=== PATIENT | female | born 1980 | race Caucasian/White ===

== ENCOUNTER 2020-08-31 20:47 | Inpatient (IN) | payer MEDICAID, SELFPAY ==
[2020-08-31 20:47] VITALS: BP 157/95; PULSE 84; RESP 18; TEMP 36.1; O2SAT 100; BMI 27.3
--- NOTE | 2020-08-31 20:59 | ED.VIS.GEN ---
History of Present Illness Chief Complaint: Substance Abuse Informant: Patient Narrative: Patient presents asking for detox from heroin and fentanyl. She has been using since May. She has been using daily and states she typically uses 1/2 to 1 g. Last use was at 4 PM today. Patient states that she did go to a clinic and try Suboxone in the past but this threw her into very severe withdrawal symptoms. She has never been in a inpatient detox unit. - Past Medical History (1) Depression Status: Chronic (2) Anxiety Status: Chronic (3) High cholesterol Status: Chronic (4) GERD (gastroesophageal reflux disease) Status: Chronic Past Medical History - Allergies and Home Meds Allergies/Adverse Reactions: Allergies Penicillins Allergy (Verified 08/31/20 21:25) Hives Drugs: Heroin, - - Fentanyl Review of Systems General: Denies: Chills, Fever Eyes: Denies: Visual changes - bilaterally ENT: Denies: Bilateral ear pain Cardiovascular: Denies: Chest pain Respiratory: Denies: Dyspnea, Cough Gastrointestinal: Reports: Nausea Musculoskeletal: Reports: Myalgias, Back pain Neurological: Denies: Headache Hematologic: Denies: Easy bruising, Easy bleeding Allergy: Denies: Uticaria Physical Exam Vital Signs/Narrative: Vital Signs Temp Pulse Resp BP Pulse Ox 08/31/20 20:47 97 F L 84 18 157/95 H 100 Inital Vital Signs reviewed: Yes General: Well nourished, Well developed Head: Normocephalic ENT: Moist mucous membranes Neck: Supple Cardiovascular: Regular rate, Regular rhythm Respiratory: No distress, CTA bilaterally Abdomen: Soft, Nontender Extremities: Nontender Skin: Normal color, - - Scarring noted to the arms but no acute abscesses. Neurological: Alert, Oriented x3 Psychological: Normal affect Diagnostic/Tx/Re-eval Laboratory Results 08/31/20 08/31/20 08/31/20 21:11 21:11 21:11 WBC 7.2 RBC 4.39 Hgb 12.3 Hct 37.7 MCV 85.9 MCH 28.0 MCHC 32.6 RDW Std Deviation 44.8 H RDW Coeff of Haroldo 14.3 Plt Count 248 MPV 11.7 Immature Gran % (Auto) 0.300 Neut % (Auto) 55.1 Lymph % (Auto) 34.3 [place] % (Auto) 7.1 Eos % (Auto) 2.5 Baso % (Auto) 0.7 Absolute Neuts (auto) 4.0 Absolute Lymphs (auto) 2.46 Nucleated RBC % 0 Sodium 141 Potassium 3.6 Chloride 107 Carbon Dioxide 29.0 Anion Gap 5 BUN 10 Creatinine 0.56 Estim Creat Clear Calc 121.37 Est GFR (MDRD) Af Amer 156 Est GFR (MDRD) Non-Af 129 BUN/Creatinine Ratio 18.0 Glucose 102 Calcium 9.2 Total Bilirubin 1.20 H AST 198 H ALT 208 H Alkaline Phosphatase 117 Total Protein 7.2 Albumin 3.7 Globulin 3.5 Albumin/Globulin Ratio 1.1 Urine Opiates Screen Urine Methadone Screen Ur Barbiturates Screen Ur Phencyclidine Scrn Ur Amphetamines Screen U Methamphetamin-MDMA U Benzodiazepines Scrn Urine Cocaine Screen U Cannabinoids Screen Ur Drug Screen Comment Ethyl Alcohol < 3.0 08/31/20 21:14 WBC RBC Hgb Hct MCV MCH MCHC RDW Std Deviation RDW Coeff of Haroldo Plt Count MPV Immature Gran % (Auto) Neut % (Auto) Lymph % (Auto) [place] % (Auto) Eos % (Auto) Baso % (Auto) Absolute Neuts (auto) Absolute Lymphs (auto) Nucleated RBC % Sodium Potassium Chloride Carbon Dioxide Anion Gap BUN Creatinine Estim Creat Clear Calc Est GFR (MDRD) Af Amer Est GFR (MDRD) Non-Af BUN/Creatinine Ratio Glucose Calcium Total Bilirubin AST ALT Alkaline Phosphatase Total Protein Albumin Globulin Albumin/Globulin Ratio Urine Opiates Screen NEGATIVE Urine Methadone Screen NEGATIVE Ur Barbiturates Screen NEGATIVE Ur Phencyclidine Scrn NEGATIVE Ur Amphetamines Screen POSITIVE H U Methamphetamin-MDMA NEGATIVE U Benzodiazepines Scrn NEGATIVE Urine Cocaine Screen NEGATIVE U Cannabinoids Screen NEGATIVE Ur Drug Screen Comment Ethyl Alcohol - Medical Decision Making Patient was given Zofran and Ativan. On repeat evaluation she is resting comfortably. She states she still has some pain in her back but her anxiety and nausea are improved. She will be given a dose of Toradol. Patient's ALT and AST are elevated. We will send an acute hepatitis panel. Patient states that she is sure not to share needles and has never been diagnosed with hepatitis in the past. I will speak with hospitalist regarding admission. ED Disposition - Plan for ED Patient: Disposition: Acute Care [facility] Diagnosis: Desire for detoxification, Transaminitis
[2020-08-31 21:23] LABS: Absolute Lymphocyte Count 2.46 X10^3/uL (0.83-4.51); Basophil# 0.05 X10^3/uL; Basophil% 0.7 % (0-1); Eosinophil# 0.18 X10^3/uL; Eosinophils% 2.5 % (0-5); Hematocrit 37.7 % (37-47); Hemoglobin 12.3 g/dL (12.0-15.0); Lymphocyte # 2.46 X10^3/ul (4.0); Lymphocyte % 34.3 % (19-41); Mean Corp Hgb Conc 32.6 g/dL (32-36); Mean Corpuscular Volume 85.9 fL (81-99); Mean Platelet Vol. 11.7 fl (6.2-12.0); Monocyte# 0.51 X10^3/uL; Monocyte% 7.1 % (0-10); NRBC Flagged by Analyzer 0 % (0-5); Neutrophil # 3.95 X10^3/uL (2.7-7.7); Neutrophil % 55.1 % (47-70); Platelet Count 248 K/mm3 (150-450); RBC Distribution Width CV 14.3 % (11.6-14.6); RBC Distribution Width SD 44.8 fl (35.1-43.9); Red Blood Count 4.39 M/mm3 (4.2-5.4); White Blood Count 7.2 K/mm3 (4.4-11.0)
[2020-08-31] MEDS: Ondansetron 4 MG/2 ML Vial IV (21:26)
[2020-08-31] MEDS: LORazepam 2 MG/ML Syringe 1 MG IV (21:26)
[2020-08-31 21:34] LABS: Alcohol, Blood (Medical)-Serum < 3.0 mg/dL
[2020-08-31 21:36] LABS: Amphetamine Urine VISTA POSITIVE (<1000 ng/mL); Barbiturate Urine VISTA NEGATIVE (< 200 ng/mL); Benzodiazepine Urine VISTA NEGATIVE (< 200 ng/mL); Cocaine Urine VISTA NEGATIVE (< 300 ng/mL); Ecstacy Urine VISTA NEGATIVE (< 500 ng/mL); Methadone Urine VISTA NEGATIVE (< 300 ng/mL); PCP Urine VISTA NEGATIVE (< 25 ng/mL); THC Urine VISTA NEGATIVE (< 50 ng/mL); Vista UDS pH Range 6
[2020-08-31 21:39] LABS: ALB/GLOB Ratio 1.1 RATIO (0.9-2.4); AST(SGOT) 198 U/L (15-37); Alanine Aminotransfer ALT/SGPT 208 U/L (13-56); Albumin, Serum 3.7 g/dL (3.2-5.0); Alkaline Phosphatase 117 U/L (45-117); Anion Gap 5 (5-15); BUN 10 mg/dL (7-18); Calcium,Total 9.2 mg/dL (8.5-10.1); Chloride 107 mmol/L (98-107); Creatinine, Serum 0.56 mg/dL (0.55-1.02); EST Glomerular Filtration Rate 129 mL/min (>60); Est Glom Filt Rate - Afr Amer 156 mL/min (>60); Estimated Creatinine Clearance 121.37 ml/min; Globulin 3.5 g/dL (2.2-4.2); Glucose 102 mg/dL (74-106); Potassium 3.6 mmol/L (3.5-5.1); Protein, Total 7.2 g/dL (6.4-8.2); Sodium Level 141 mmol/L (136-145)
[2020-08-31 22:47] VITALS: BP 144/89; PULSE 61; RESP 18; O2SAT 100
[2020-08-31] MEDS: Ketorolac 30 MG/ML Syringe IV (22:57)
[2020-08-31 22:59] VITALS: BP 144/89; PULSE 61; RESP 18; TEMP 36.9; O2SAT 100
--- NOTE | 2020-08-31 23:08 | PCM.HP.STD ---
Problem List (1) Opiate withdrawal Status: Acute (2) Desire for detoxification Status: Acute (3) Transaminitis Status: Acute (4) Anxiety Status: Acute (5) Depression Status: Chronic (6) GERD (gastroesophageal reflux disease) Status: Chronic (7) High cholesterol Status: Chronic History of Present Illness Date of Admission: 08/31/20 Chief Complaint: Withdrawal symptoms The patient is a 40 year old F with a past medical history of hyperlipidemia; insomnia; anxiety and depression who presents to the emergency department with opioid withdrawal symptoms. Her symptoms started few hours before presentation. Her drug of choice is heroin which she shoots in her arms. She admitted that the heroin might be mixed with fentanyl. The last time of use was in the morning of her presentation. She reported her withdrawal symptoms as nausea; back pain; twitches; anxiety; restless legs. Also she has been shooting crystal methamphetamine. She started using drugs in May of this year (2019). Past Medical History Past Medical History (Chronic Problems): Chronic Problems Depression (Chronic) High cholesterol (Chronic) GERD (gastroesophageal reflux disease) (Chronic) Allergies Penicillins Allergy (Verified 08/31/20 21:25) Hives Home Medications: Ambulatory Orders Medication Instructions Recorded Atorvastatin Calcium [Lipitor] 20 mg PO QHS 08/31/20 Doxepin HCl 10 mg PO QHS 08/31/20 Escitalopram Oxalate 20 mg PO DAILY 08/31/20 Omeprazole 20 mg PO DAILY 08/31/20 Surgical History: hysterectomy, - Smoking Status: Current every day smoker Tobacco Use: Cigarettes Drugs: Heroin, - - Fentanyl - *Family History Maternal History Items: Cancer, - - Thyroid disease Paternal History Items: - - Patient does not know paternal medical history Review of Systems Constitutional: Denies: Chills, Fever, Weight Change HEENT: Denies: Head Aches, Sinus Congestion, Sinus Drainage Cardiovascular: Denies: Chest Pain, Palpitations Respiratory: Denies: Cough, Shortness of breath at rest, Sputum production Gastrointestinal: Reports: Nausea. Denies: Abdominal Pain, Vomiting Genitourinary: Denies: Dysuria Musculoskeletal: Reports: Back Pain. Denies: Joint Pain, Joint Tenderness Skin: Denies: Rash, Wounds Neurological: Denies: Numbness, Tingling, Focal weakness Psychiatric: Reports: Anxiety. Denies: Depression, Homicidal Ideations, Suicidal Ideations Hematologic/ Lymphatic: Denies: Easy Bruising, Easy Bleeding VTE Information - Inpt Only VTE Present on Admission: No VTE Mechan Device Prophylaxis: None VTE Pharm Prophylaxis ordered?: No Reason prophylaxis not ordered:: Treatment Not Indicated - Low risk; encourage ambulate. Patient Problems: Active and Suspected Problems Anxiety (Acute) Desire for detoxification (Acute) Transaminitis (Acute) Opiate withdrawal (Acute) - Physical Exam Vitals/I&O's: Vital Signs Temp Pulse Resp BP Pulse Ox 98.5 F 61 18 144/89 H 100 08/31/20 22:59 08/31/20 22:59 08/31/20 22:59 08/31/20 22:59 08/31/20 22:59 Oxygen Delivery Method Room Air Weight: 74.4 kg Body Mass Index (BMI) 27.3 General: Alert, Oriented x3, Cooperative HEENT: Atraumatic, PERRLA, EOMI, Normocephalic Neck: Supple, No JVD, Negative Carotid Bruits Lungs: Clear to auscultation, Normal air movement Cardiovascular: Regular rate, Normal S1, Normal S2, No murmurs Abdomen: Bowel Sounds Present, Soft, Non Tender Extremities: No edema, Capillary Refill Less than 3 Seconds Skin: No rashes, No breakdown Musculoskeletal: No Tenderness to Palpation of Joints or Extremities Neurological: Cranial nerves II-XII grossly intact Psych/Mental Status: Anxious Laboratory Results 08/31/20 21:11: WBC 7.2, RBC 4.39, Hgb 12.3, Hct 37.7, MCV 85.9, MCH 28.0, MCHC 32.6, RDW Std Deviation 44.8 H, RDW Coeff of Haroldo 14.3, Plt Count 248, MPV 11.7, Immature Gran % (Auto) 0.300, Neut % (Auto) 55.1, Lymph % (Auto) 34.3, [place] % (Auto) 7.1, Eos % (Auto) 2.5, Baso % (Auto) 0.7, Absolute Neuts (auto) 4.0, Absolute Lymphs (auto) 2.46, Nucleated RBC % 0 08/31/20 21:11: Sodium 141, Potassium 3.6, Chloride 107, Carbon Dioxide 29.0, Anion Gap 5, BUN 10, Creatinine 0.56, Estim Creat Clear Calc 121.37, Est GFR (MDRD) Af Amer 156, Est GFR (MDRD) Non-Af 129, BUN/Creatinine Ratio 18.0, Glucose 102, Calcium 9.2, Total Bilirubin 1.20 H, AST 198 H, ALT 208 H, Alkaline Phosphatase 117, Total Protein 7.2, Albumin 3.7, Globulin 3.5, Albumin/Globulin Ratio 1.1 08/31/20 21:11: Ethyl Alcohol < 3.0 08/31/20 21:14: Urine Opiates Screen NEGATIVE, Urine Methadone Screen NEGATIVE, Ur Barbiturates Screen NEGATIVE, Ur Phencyclidine Scrn NEGATIVE, Ur Amphetamines Screen POSITIVE H, U Methamphetamin-MDMA NEGATIVE, U Benzodiazepines Scrn NEGATIVE, Urine Cocaine Screen NEGATIVE, U Cannabinoids Screen NEGATIVE, Ur Drug Screen Comment 08/31/20 22:59: Hepatitis A IgM Ab Pending, Hep Bs Antigen Pending, Hep B Core IgM Ab Pending, Hepatitis C Ab (EIA) Pending Assessment/Plan All Active Problems Anxiety (Acute) Desire for detoxification (Acute) Transaminitis (Acute) Opiate withdrawal (Acute) Opiate withdrawal with desire for detoxification Emergency department labs were reviewed. Urine toxicology was positive for amphetamines. Start patient on opiate withdrawal protocol with Subutex and other adjunctive medications. Counselled. Elevated liver enzymes May department labs showed elevated liver biochemistry and bilirubin. She denies sharing needles. Differential diagnosis include fatty liver; and hepatitis C. Acute hepatitis panel was ordered at emergency department. Trend CMP. We will get acute hepatitis panel. Keep n.p.o. and get ultrasound of liver in a.m. Albumin is normal. Check PT/INR. Acute on chronic anxiety Doxepin and Escitalopram continued Detoxification as above. Hyperlipidemia Lipitor continued Hiatal hernia with GERD Omeprazole continued Insomnia Trazodone as needed. DVT prophylaxis Low risk; encourage to ambulate. Inpatient E&M: 67280 Init Hosp L3
--- NOTE | 2020-08-31 23:47 | PCS.PANDOC ---
PANDEMIC DOCUMENTATION INITIATED: Date: 08/31/2020 Time: 3543
[2020-09-01 00:04] VITALS: BMI 27.4
[2020-09-01 00:09] VITALS: BMI 27.5
[2020-09-01 00:30] VITALS: BP 123/67; PULSE 73; RESP 16; TEMP 36.8; O2SAT 100
[2020-09-01] MEDS: Doxepin Hydrochloride 10 MG Capsule PO ×2 (00:42→22:04)
[2020-09-01] MEDS: traZODone 100 MG Tablet PO ×2 (00:42→22:03)
[2020-09-01] MEDS: hydrOXYzine PAM 25 MG Capsule 50 MG PO ×3 (00:42→22:04)
--- NOTE | 2020-09-01 05:55 | US_ITS ---
STUDY: ABDOMINAL ULTRASOUND - RIGHT UPPER QUADRANT REASON FOR VISIT: Female, 40 years old ELEVATED LIVER ENZYMES TECHNIQUE: Ultrasound evaluation of the right upper quadrant was performed with real-time and static cao-scale imaging. TECHNICAL QUALITY: Adequate. COMPARISON: None. FINDINGS: Liver: The liver measures 17.0 cm. There is increased echogenicity consistent with fatty infiltration. The bile ducts are within normal limits. There is hepatic color flow. The direction of portal flow is hepatopetal. There is no demonstrated mass lesion. Gallbladder: Normal distended gallbladder. The gallbladder wall measures 2 mm. There is a negative sonographic Martin''s sign. There is no pericholecystic fluid. There are no gallstones. Common Bile Duct (C.B.D.): The common bile duct measures 4 mm. Pancreas: Normal size of the head, body and tail of the pancreas. There is normal echogenicity of the pancreas. There is no demonstrated pancreatic mass or cyst. Right Kidney: Normal size of the right kidney. The right kidney measures 11.4 cm. Normal renal cortex. The right cortex measures 1.4 cm. There is no demonstrated renal mass or cyst. There is no right hydronephrosis. US/Liver IMPRESSION: Fatty infiltration of the liver. Electronically Signed: Johann Barajas MD at 9:22 EST Tel , Service support ,
[2020-09-01 06:21] VITALS: BP 104/63; PULSE 66; RESP 14; TEMP 36.7; O2SAT 95
[2020-09-01] MEDS: Buprenorphine HCl 2 MG TAB.SUBL SL ×3 (06:29→22:03)
[2020-09-01 07:14] VITALS: O2SAT 95
--- NOTE | 2020-09-01 08:25 | PCM.PROGNOTE ---
Patient Problems: Active and Suspected Problems Anxiety (Acute) Desire for detoxification (Acute) Transaminitis (Acute) Opiate withdrawal (Acute) Subjective: Chief complaint: Follow-up after admission for acute opioid withdrawal. Patient seen and examined. No acute events overnight. She complained of back ache, body aches and fatigue. She slept okay last night. Her vital signs are stable. - Physical Exam Vitals/I&O's: Vital Signs Temp Pulse Resp BP Pulse Ox 98.0 F 66 14 104/63 95 09/01/20 06:21 09/01/20 06:21 09/01/20 06:21 09/01/20 06:21 09/01/20 07:14 Oxygen Delivery Method Room Air Weight: 165 lb Body Mass Index (BMI) 27.4 Intake and Output for Last 24 Hours 08/30/20 08/31/20 09/01/20 23:59 23:59 23:59 Intake Total 0 / 0 Balance 0 / 0 General: Alert, Oriented x3, Cooperative, No apparent distress HEENT: Atraumatic, PERRLA, EOMI, Normocephalic Oral: Moist Mucosa, No Gingival or Mucosal Lesions/ Ulcerations Neck: Supple, No JVD, Negative Carotid Bruits, Trachea Midline, Thyroid Normal Size and Texture Lungs: Clear to auscultation, Normal air movement, No rhonchi, No wheeze, No rales Cardiovascular: Regular rate, Regular Rhythm, Normal S1, Normal S2, No murmurs, PMI Normal Abdomen: Bowel Sounds Present, Soft, Non Tender, Non-Distended, No Hepato-splenomegaly Extremities: No clubbing, No cyanosis, No edema Skin: No rashes, No breakdown Lymphatic: No Cervical, Supraclavicular, or Inguinal Adenopathy Neurological: Cranial nerves II-XII grossly intact, Motor Exam 5/5 strength throughout Psych/Mental Status: Normal Affect, Appropriate, Alert and oriented to time, place, person, mood and affect Laboratory Results 08/31/20 21:11: WBC 7.2, RBC 4.39, Hgb 12.3, Hct 37.7, MCV 85.9, MCH 28.0, MCHC 32.6, RDW Std Deviation 44.8 H, RDW Coeff of Haroldo 14.3, Plt Count 248, MPV 11.7, Immature Gran % (Auto) 0.300, Neut % (Auto) 55.1, Lymph % (Auto) 34.3, [place] % (Auto) 7.1, Eos % (Auto) 2.5, Baso % (Auto) 0.7, Absolute Neuts (auto) 4.0, Absolute Lymphs (auto) 2.46, Nucleated RBC % 0 08/31/20 21:11: Sodium 141, Potassium 3.6, Chloride 107, Carbon Dioxide 29.0, Anion Gap 5, BUN 10, Creatinine 0.56, Estim Creat Clear Calc 121.37, Est GFR (MDRD) Af Amer 156, Est GFR (MDRD) Non-Af 129, BUN/Creatinine Ratio 18.0, Glucose 102, Calcium 9.2, Total Bilirubin 1.20 H, AST 198 H, ALT 208 H, Alkaline Phosphatase 117, Total Protein 7.2, Albumin 3.7, Globulin 3.5, Albumin/Globulin Ratio 1.1 08/31/20 21:11: Ethyl Alcohol < 3.0 08/31/20 21:14: Urine Opiates Screen NEGATIVE, Urine Methadone Screen NEGATIVE, Ur Barbiturates Screen NEGATIVE, Ur Phencyclidine Scrn NEGATIVE, Ur Amphetamines Screen POSITIVE H, U Methamphetamin-MDMA NEGATIVE, U Benzodiazepines Scrn NEGATIVE, Urine Cocaine Screen NEGATIVE, U Cannabinoids Screen NEGATIVE, Ur Drug Screen Comment 08/31/20 22:59: Hepatitis A IgM Ab Pending, Hep Bs Antigen Pending, Hep B Core IgM Ab Pending, Hepatitis C Ab (EIA) Pending 09/01/20 07:45: Sodium Pending, Potassium Pending, Chloride Pending, Carbon Dioxide Pending, Anion Gap Pending, BUN Pending, Creatinine Pending, Est GFR (MDRD) Af Amer Pending, Est GFR (MDRD) Non-Af Pending, BUN/Creatinine Ratio Pending, Glucose Pending, Calcium Pending, Total Bilirubin Pending, AST Pending, ALT Pending, Alkaline Phosphatase Pending, Total Protein Pending, Albumin Pending 09/01/20 07:45: PT Pending, INR Pending Current Medications Atorvastatin Calcium (Atorvastatin Calcium 20 Mg Tablet) 20 mg PO QHS DAVID Buprenorphine HCl (Buprenorphine Hcl 2 Mg Tab.Subl) 4 mg SL Q8H DAVID; Taper Stop: 09/04/20 06:29 Last Admin: 09/01/20 06:29 Dose: 4 mg Documented by: Clonidine (Clonidine Hcl 0.1 Mg Tablet) 0.1 mg PO Q8H PRN PRN PRN Reason: RESTLESSNESS Dicyclomine HCl (Dicyclomine 10 Mg Capsule) 20 mg PO Q6H PRN PRN PRN Reason: Abdominal Discomfort Doxepin HCl (Doxepin Hydrochloride 10 Mg Capsule) 10 mg PO QHS [facility] Last Admin: 09/01/20 00:42 Dose: 10 mg Documented by: Escitalopram Oxalate (Escitalopram Oxalate 20 Mg Tablet) 20 mg PO DAILY [facility] Gabapentin (Gabapentin 300 Mg Capsule) 300 mg PO Q8H PRN PRN PRN Reason: moderate to severe anxiety Hydroxyzine Pamoate (Hydroxyzine [place] 25 Mg Capsule) 50 mg PO Q6H PRN PRN PRN Reason: mild anxiety Last Admin: 09/01/20 00:42 Dose: 50 mg Documented by: Loperamide HCl (Loperamide 2 Mg Capsule) 2 mg PO Q4H PRN PRN PRN Reason: LOOSE STOOLS Melatonin (Melatonin 3 Mg Tablet) 3 mg PO QHS PRN PRN PRN Reason: INSOMNIA Methocarbamol (Methocarbamol 750 Mg Tablet) 1,500 mg PO Q6H PRN PRN PRN Reason: MUSCLE SPASM Nicotine (Nicotine 21 Mg Patch) 21 mg TD DAILY [facility] Last Admin: 09/01/20 01:19 Dose: 21 mg Documented by: Nutritional Formula (Lactose Free) (Ensure Enlive 120 Ml Liquid) 120 ml PO 4X/DAY [facility] Ondansetron HCl (Ondansetron 8 Mg Tablet) 8 mg PO Q8H PRN PRN PRN Reason: NAUSEA Pantoprazole Sodium (Pantoprazole Sodium 20 Mg Tablet) 20 mg PO DAILY [facility] Sodium Chloride (0.9% Saline Lock 10 Ml Syringe) 10 - 40 ml IV UD PRN PRN Reason: SALINE FLUSH Trazodone HCl (Trazodone 100 Mg Tablet) 100 mg PO QHS PRN PRN PRN Reason: INSOMNIA Last Admin: 09/01/20 00:42 Dose: 100 mg Documented by: Medical Necessity - Tobacco Use Smoking Status: Current every day smoker Tobacco Use: Cigarettes Assessment/Plan All Active Problems Anxiety (Acute) Desire for detoxification (Acute) Transaminitis (Acute) Opiate withdrawal (Acute) This is a 40 years old female patient admitted for acute opioid withdrawal for medical stabilization. #2 acute opiate withdrawal: Patient has been using IV fentanyl and heroin. She is on tapering Subutex, as needed Catapres, Bentyl, Neurontin, Vistaril, Imodium, methocarbamol, Zofran and trazodone. Routine blood work was unremarkable. Urine drug screen was positive for amphetamines. Blood alcohol level was negative. She still having withdrawal symptoms mainly body aches, pains and fatigue. She is appropriate for inpatient treatment. Plan to continue same treatment, consult 180 program. #2 elevated LFT: In setting of IV drug user. Bilirubin slight elevated, liver transaminases are elevated, alk phos is normal. She denied any right upper quadrant abdominal pain. Hepatitis serology is pending. #3 hyperlipidemia: Continue statins. #4 depression: Stable, continue doxepin and Lexapro. #5 tobacco abuse: NicoDerm patch. #6 DVT prophylaxis: Low risk patient, no prophylaxis indicated. This note was generated with [employer] dictation software. It may contain incorrect words, spelling, and punctuation that were not noted in checking the note before signing. Inpatient E&M: 12371 Subs Hosp L2
[2020-09-01 08:32] LABS: ALB/GLOB Ratio 1.1 RATIO (0.9-2.4); AST(SGOT) 160 U/L (15-37); Alanine Aminotransfer ALT/SGPT 165 U/L (13-56); Albumin, Serum 2.7 g/dL (3.2-5.0); Alkaline Phosphatase 96 U/L (45-117); Anion Gap 3 (5-15); BUN 10 mg/dL (7-18); BUN/Creat Ratio 23.7 RATIO (10-20); Calcium,Total 8.2 mg/dL (8.5-10.1); Chloride 110 mmol/L (98-107); Creatinine, Serum 0.42 mg/dL (0.55-1.02); EST Glomerular Filtration Rate 177 mL/min (>60); Est Glom Filt Rate - Afr Amer 215 mL/min (>60); Estimated Creatinine Clearance 161.82 ml/min; Globulin 2.5 g/dL (2.2-4.2); Glucose 100 mg/dL (74-106); Potassium 3.4 mmol/L (3.5-5.1); Protein, Total 5.2 g/dL (6.4-8.2); Sodium Level 141 mmol/L (136-145)
[2020-09-01 08:56] LABS: International Normalized Ratio 1.1; Prothrombin Time (Protime)PT. 14.1 SECONDS (11.7-14.9)
[2020-09-01] MEDS: Methocarbamol 750 MG Tablet 1500 MG PO ×3 (09:43→22:04)
[2020-09-01] MEDS: Gabapentin 300 MG Capsule PO (09:44)
[2020-09-01] MEDS: cloNIDine HCl 0.1 MG Tablet PO (09:44)
[2020-09-01] MEDS: Ondansetron 8 MG Tablet PO (09:44)
[2020-09-01] MEDS: Pantoprazole Sodium 20 MG Tablet PO (09:44)
[2020-09-01] MEDS: Escitalopram Oxalate 20 MG Tablet PO (09:45)
[2020-09-01 09:57] VITALS: BP 129/56; PULSE 63; RESP 20; TEMP 36.4; O2SAT 94
--- NOTE | 2020-09-01 10:53 | PCM.NTREPORT ---
Nutrition Therapy Report - History Nutrition Services has been consulted to:: Manage nutrient details of diet order Current diet / nutrition support order:: NPO; 120mL ensure enlive w/ medpass - Anthropometric Measurements Height:: 5 ft 5 in Weight:: 74.843 kg Body Mass Index (BMI):: 27.4 - Relevant Labs Relevant Labs:: RDW Std Deviation 44.8 fl (35.1-43.9) H 08/31/20 21:11 Potassium 3.4 mmol/L (3.5-5.1) L 09/01/20 07:45 Chloride 110 mmol/L (98-107) H 09/01/20 07:45 Anion Gap 3 (5-15) L 09/01/20 07:45 Creatinine 0.42 mg/dL (0.55-1.02) L 09/01/20 07:45 BUN/Creatinine Ratio 23.7 RATIO (10-20) H 09/01/20 07:45 Calcium 8.2 mg/dL (8.5-10.1) L 09/01/20 07:45 Total Bilirubin 1.20 mg/dL (0.20-1.00) H 08/31/20 21:11 AST 160 U/L (15-37) H 09/01/20 07:45 ALT 165 U/L (13-56) H 09/01/20 07:45 Total Protein 5.2 g/dL (6.4-8.2) L 09/01/20 07:45 Albumin 2.7 g/dL (3.2-5.0) L 09/01/20 07:45 - Assessment Food / Nutrition-Related History:: Pt reports poor PO intake over last 3 months. States she has unintentionally lost wt over last 3 months. UBW 200# and CBW 165#-35#/17.5%, significant for malnutrition. Pt NPO this AM for liver ultrasound. States she is not hungry at time of assessment. - Nutrition Diagnosis Problem / Etiology / Signs & Symptoms (PES):: Pt w/ severe malnutrition in context of social/behavioral circumstances related to drug abuse as evidenced by inadequate PO intake meeting less than 75% of estimated nutritional needs for greater than 3 months, unintentional wt loss of 35#/17.5%. Evidence of Malnutrition Exists:: Yes Severe PCM:: Social & Environmental circumstances - Nutrition Intervention Nutrition Prescription:: [id number] calories, 64-74 g protein/day - Food / Nutrient Delivery Interventions Summary of nutrition intervention:: Has Ensure Enlive w/ medpass ordered- will monitor acceptance of ONS and adjust as indicated. Nutrition support ordered as / adjusted to:: recommend regular diet when medically indicated; continue ensure enlive w/ medpass. Nutrition education provided?: Yes - Encouraged PO intake; pt w/ no questions for RDN. - MNT Monitoring Further MNT monitoring and evaluation required?: Yes MNT Follow-up in:: 3-5 days
[2020-09-01 10:55] VITALS: BMI 27.4
--- NOTE | 2020-09-01 11:28 | NURSING ---
Pt given all the prn's this nurse could give her at approximately 0944 this morning. Pt is in her bed, having hot/cold changes still, teeth chattering, Severe tremors, restlessness. This nurse texted Dr. Julian/.
[2020-09-01] MEDS: LORazepam 1 MG Tablet PO (11:42)
--- NOTE | 2020-09-01 12:27 | CASEMGMT ---
SONNY spoke w/Mary, navigator with the [facility] program, she will come see pt on 09/02/20. CHRIS Finley
[2020-09-01 15:44] VITALS: BP 117/74; PULSE 68; RESP 18; TEMP 36.8; O2SAT 95
[2020-09-01 20:08] VITALS: BP 128/82; PULSE 70; RESP 18; TEMP 37; O2SAT 95
[2020-09-01] MEDS: Atorvastatin Calcium 20 MG Tablet PO (22:03)
[2020-09-02 00:22] VITALS: BP 114/68; PULSE 67; RESP 16; TEMP 36.9; O2SAT 96
[2020-09-02] MEDS: Gabapentin 300 MG Capsule PO ×2 (00:28→18:25)
[2020-09-02 06:04] VITALS: BP 131/80; PULSE 69; RESP 16; TEMP 36.8; O2SAT 94
[2020-09-02] MEDS: Buprenorphine HCl 2 MG TAB.SUBL SL ×3 (06:15→23:20)
[2020-09-02] MEDS: cloNIDine HCl 0.1 MG Tablet PO ×2 (06:15→20:22)
[2020-09-02] MEDS: Methocarbamol 750 MG Tablet 1500 MG PO ×2 (06:15→18:25)
--- NOTE | 2020-09-02 08:05 | PN_ITS ---
Patient Problems: Active and Suspected Problems Desire for detoxification (Acute) Transaminitis (Acute) Opiate withdrawal (Acute) Subjective: Chief complaint: Follow-up after admission for acute opioid withdrawal. Patient seen and examined. No acute events overnight. Yesterday afternoon, she had bad withdrawal symptoms for which she received 1 dose of p.o. Ativan and she improved significantly. This morning, she mentioned that she had a good sleep last night. Symptoms improved but still there. Her vital signs are stable. - Physical Exam Vitals/I&O's: Vital Signs Temp Pulse Resp BP Pulse Ox 98.3 F 69 16 131/80 H 94 09/02/20 06:04 09/02/20 06:04 09/02/20 06:04 09/02/20 06:04 09/02/20 06:04 Oxygen Delivery Method Room Air Weight: 165 lb 0.009 oz Body Mass Index (BMI) 27.4 Intake and Output for Last 24 Hours 08/31/20 09/01/20 09/02/20 23:59 23:59 23:59 Intake Total 420 / 720 600 / 600 Balance 420 / 720 600 / 600 General: Alert, Oriented x3, Cooperative, No apparent distress HEENT: Atraumatic, PERRLA, EOMI, Normocephalic Oral: Moist Mucosa, No Gingival or Mucosal Lesions/ Ulcerations Neck: Supple, No JVD, Negative Carotid Bruits, Trachea Midline, Thyroid Normal Size and Texture Lungs: Clear to auscultation, Normal air movement, No rhonchi, No wheeze, No rales Cardiovascular: Regular rate, Regular Rhythm, Normal S1, Normal S2, PMI Normal Abdomen: Bowel Sounds Present, Soft, Non Tender, Non-Distended, No Hepato- splenomegaly Extremities: No clubbing, No cyanosis, No edema Skin: No rashes, No breakdown Lymphatic: No Cervical, Supraclavicular, or Inguinal Adenopathy Neurological: Cranial nerves II-XII grossly intact, Neuro grossly intact Psych/Mental Status: Normal Affect, Appropriate, Alert and oriented to time, place, person, mood and affect Laboratory Results 09/01/20 07:45: Sodium 141, Potassium 3.4 L, Chloride 110 H, Carbon Dioxide 28.0, Anion Gap 3 L, BUN 10, Creatinine 0.42 L, Estim Creat Clear Calc 161.82, Est GFR (MDRD) Af Amer 215, Est GFR (MDRD) Non-Af 177, BUN/Creatinine Ratio 23.7 H, Glucose 100, Calcium 8.2 L, Total Bilirubin 0.80, AST 160 H, ALT 165 H, Alkaline Phosphatase 96, Total Protein 5.2 L, Albumin 2.7 L, Globulin 2.5, Albumin/Globulin Ratio 1.1 09/01/20 07:45: PT 14.1, INR 1.1 Current Medications Atorvastatin Calcium (Atorvastatin Calcium 20 Mg Tablet) 20 mg PO QHS [facility] Last Admin: 09/01/20 22:03 Dose: 20 mg Documented by: Buprenorphine HCl (Buprenorphine Hcl 2 Mg Tab.Subl) 2 mg SL Q8H [facility]; Taper Stop: 09/04/20 06:29 Last Admin: 09/02/20 06:15 Dose: 2 mg Documented by: Clonidine (Clonidine Hcl 0.1 Mg Tablet) 0.1 mg PO Q8H PRN PRN PRN Reason: RESTLESSNESS Last Admin: 09/02/20 06:15 Dose: 0.1 mg Documented by: Dicyclomine HCl (Dicyclomine 10 Mg Capsule) 20 mg PO Q6H PRN PRN PRN Reason: Abdominal Discomfort Doxepin HCl (Doxepin Hydrochloride 10 Mg Capsule) 10 mg PO QHS [facility] Last Admin: 09/01/20 22:04 Dose: 10 mg Documented by: Escitalopram Oxalate (Escitalopram Oxalate 20 Mg Tablet) 20 mg PO DAILY [facility] Last Admin: 09/01/20 09:45 Dose: 20 mg Documented by: Gabapentin (Gabapentin 300 Mg Capsule) 300 mg PO Q8H PRN PRN PRN Reason: moderate to severe anxiety Last Admin: 09/02/20 00:28 Dose: 300 mg Documented by: Hydroxyzine Pamoate (Hydroxyzine [place] 25 Mg Capsule) 50 mg PO Q6H PRN PRN PRN Reason: mild anxiety Last Admin: 09/01/20 22:04 Dose: 50 mg Documented by: Loperamide HCl (Loperamide 2 Mg Capsule) 2 mg PO Q4H PRN PRN PRN Reason: LOOSE STOOLS Melatonin (Melatonin 3 Mg Tablet) 3 mg PO QHS PRN PRN PRN Reason: INSOMNIA Methocarbamol (Methocarbamol 750 Mg Tablet) 1,500 mg PO Q6H PRN PRN PRN Reason: MUSCLE SPASM Last Admin: 09/02/20 06:15 Dose: 1,500 mg Documented by: Nicotine (Nicotine 21 Mg Patch) 21 mg TD DAILY [facility] Last Admin: 09/01/20 09:47 Dose: Not Given Documented by: Nutritional Formula (Lactose Free) (Ensure Enlive 120 Ml Liquid) 120 ml PO 4X/DAY [facility] Last Admin: 09/01/20 20:59 Dose: Not Given Documented by: Ondansetron HCl (Ondansetron 8 Mg Tablet) 8 mg PO Q8H PRN PRN PRN Reason: NAUSEA Last Admin: 09/01/20 09:44 Dose: 8 mg Documented by: Pantoprazole Sodium (Pantoprazole Sodium 20 Mg Tablet) 20 mg PO DAILY [facility] Last Admin: 09/01/20 09:44 Dose: 20 mg Documented by: Sodium Chloride (0.9% Saline Lock 10 Ml Syringe) 10 - 40 ml IV UD PRN PRN Reason: SALINE FLUSH Trazodone HCl (Trazodone 100 Mg Tablet) 100 mg PO QHS PRN PRN PRN Reason: INSOMNIA Last Admin: 09/01/20 22:03 Dose: 100 mg Documented by: Medical Necessity - Tobacco Use Smoking Status: Current every day smoker Tobacco Use: Cigarettes Assessment/Plan All Active Problems Desire for detoxification (Acute) Transaminitis (Acute) Opiate withdrawal (Acute) This is a 40 years old female patient admitted for acute opioid withdrawal for medical stabilization. #2 acute opiate withdrawal: She remained on tapering Subutex, as needed Catapres, Bentyl, Neurontin, Vistaril, Imodium, methocarbamol, Zofran and trazodone. Routine blood work was unremarkable. There, she is feeling better, having less withdrawal symptoms. Urine drug screen was positive for amphetamines. Blood alcohol level was negative. She remained appropriate for inpatient treatment. [facility] program consulted. Plan to continue same treatment. #2 elevated LFT: In setting of IV drug user. Bilirubin slight elevated, liver transaminases are elevated, alk phos is normal. She denied any right upper quadrant abdominal pain. Hepatitis serology is pending. #3 hyperlipidemia: Continue statins. #4 depression: Stable, continue doxepin and Lexapro. #5 tobacco abuse: NicoDerm patch. #6 DVT prophylaxis: Low risk patient, no prophylaxis indicated. This note was generated with Chinese Onlineation software. It may contain incorrect words, spelling, and punctuation that were not noted in checking the note before signing. Inpatient E&M: 05946 Subs Hosp L2
[2020-09-02 08:10] VITALS: O2SAT 94
[2020-09-02 09:48] VITALS: BP 147/74; PULSE 68; RESP 18; TEMP 37.2; O2SAT 95
[2020-09-02] MEDS: Pantoprazole Sodium 20 MG Tablet PO (10:22)
[2020-09-02] MEDS: Escitalopram Oxalate 20 MG Tablet PO (10:22)
[2020-09-02 12:07] LABS: HEPATITIS B SURFACE AG Negative (Negative); Hepatitis A IgM Antibody Negative (Negative); Hepatitis B Core AB IgM Negative (Negative)
[2020-09-02 14:00] VITALS: BP 144/70; PULSE 74; RESP 18; TEMP 37; O2SAT 98
[2020-09-02 15:04] LABS: Hep C Antibodies 0.4 s/co ratio (0.0-0.9)
[2020-09-02] MEDS: hydrOXYzine PAM 25 MG Capsule 50 MG PO (16:54)
[2020-09-02] MEDS: Ondansetron 8 MG Tablet PO (16:54)
[2020-09-02] MEDS: Ibuprofen 400 MG Tablet PO (19:33)
[2020-09-02 20:08] VITALS: BP 109/65; PULSE 60; RESP 18; TEMP 36.9; O2SAT 96
[2020-09-02] MEDS: Atorvastatin Calcium 20 MG Tablet PO (23:20)
[2020-09-02] MEDS: Doxepin Hydrochloride 10 MG Capsule PO (23:41)
[2020-09-03 02:08] VITALS: BP 103/58; PULSE 60; RESP 18; TEMP 36.5; O2SAT 97
[2020-09-03] MEDS: Buprenorphine HCl 2 MG TAB.SUBL SL (06:05)
[2020-09-03 07:26] VITALS: O2SAT 95
--- NOTE | 2020-09-03 08:09 | DCINST_ITS ---
- Discharge Diagnoses Current Active Problems: Current Active and Chronic Problems Depression (Chronic) High cholesterol (Chronic) GERD (gastroesophageal reflux disease) (Chronic) Desire for detoxification (Acute) Transaminitis (Acute) Opiate withdrawal (Acute) You will use the following diet at home:: Regular Your food should be the consistency of: Regular Discharge Activity: Return to Normal Activity Weight Bearing Status: Full weight bearing Call your doctor if you observe: Fever of 101 or Higher, Shortness of breath, Dizziness, Fainting spells, Chest pain, Increased palpitations (irregular heartbeat), Uncontrolled pain Additional Instructions: Please follow-up with the [facility] program. Allergies/Adverse Reactions: Allergies Penicillins Allergy (Verified 08/31/20 21:25) Hives Medications to take at Discharge Atorvastatin Calcium [Lipitor] 20 mg PO QHS 08/31/20 Doxepin HCl 10 mg PO QHS 08/31/20 Escitalopram Oxalate 20 mg PO DAILY 08/31/20 Omeprazole 20 mg PO DAILY 08/31/20 Primary Care Physician: Care Physician,No Primary [Primary Care Provider] - Please follow up with your Primary Care Physician in: 2-3 weeks. Test Results: Test results from this visit will be discussed in further detail at your follow- up appointment, if applicable.
[2020-09-03 08:59] VITALS: BP 115/71; PULSE 98; RESP 18; TEMP 36.8; O2SAT 100
[2020-09-03] MEDS: Escitalopram Oxalate 20 MG Tablet PO (10:17)
[2020-09-03] MEDS: Pantoprazole Sodium 20 MG Tablet PO (10:17)
--- NOTE | 2020-09-03 11:43 | DS.PCM_ITS ---
Discharge Date and Diagnosis - Problem List Patient Problems: Active and Suspected Problems Desire for detoxification (Acute) Transaminitis (Acute) Opiate withdrawal (Acute) Date of Admission: 08/31/20 Date of Discharge: 09/03/20 - Primary Discharge Diagnosis Acute Problems: Active Problems #1 acute opioid withdrawal. #2 elevated liver transaminases. - Secondary Discharge Diagnosis Chronic Problems: Chronic Problems Depression (Chronic) High cholesterol (Chronic) GERD (gastroesophageal reflux disease) (Chronic) Hospital Course and Treatment Operations: None Procedures: None Summary of Care Provided: Patient seen and examined on day of discharge and appeared to be stable to be discharged home. She had no complaints. Her vital signs were stable. The patient is a 40 year old F presented to the emergency room requesting admission for acute opioid withdrawal for medical stabilization. She has been using IV fentanyl and heroin. Routine CBC and BMP was unremarkable. LFT revealed slight elevated bilirubin and elevated liver transaminases, alk phos was normal. Urine drug screen was positive for amphetamines. Blood alcohol level was less than 3. Patient was treated with therapeutic Subutex, as needed Catapres, Bentyl, Neurontin, Vistaril, Imodium, methocarbamol, Zofran and trazodone. Hepatitis serology was sent because of elevated LFT and it came back negative for hepatitis A IgM antibodies, negative for hepatitis B surface antigen and core antibodies, negative for hepatitis C antibodies. With treatment, patient symptoms improved and she did very well. LFTs started to trend down. Patient discharged home in a stable condition, continued on her previous home medications without any changes, recommended follow-up with [facility] program and follow-up with PCP in 2 to 3 weeks. Patient Problems: Active and Suspected Problems Desire for detoxification (Acute) Transaminitis (Acute) Opiate withdrawal (Acute) - Physical Exam Vitals/I&O's: Vital Signs Temp Pulse Resp BP Pulse Ox 98.2 F 98 18 115/71 100 09/03/20 08:59 09/03/20 08:59 09/03/20 08:59 09/03/20 08:59 09/03/20 08:59 Oxygen Delivery Method Room Air Weight: 165 lb 0.009 oz Body Mass Index (BMI) 27.4 Intake and Output for Last 24 Hours 09/01/20 09/02/20 09/03/20 23:59 23:59 23:59 Intake Total 420 / 720 3450 / 3450 150 / 150 Balance 420 / 720 3450 / 3450 150 / 150 General: Alert, Oriented x3, Cooperative, No apparent distress HEENT: Atraumatic, PERRLA, EOMI, Normocephalic Oral: Moist Mucosa, No Gingival or Mucosal Lesions/ Ulcerations Neck: Supple, No JVD, Negative Carotid Bruits, Trachea Midline, Thyroid Normal Size and Texture Lungs: Clear to auscultation, Normal air movement, No rhonchi, No wheeze, No rales Cardiovascular: Regular rate, Regular Rhythm, Normal S1, Normal S2, PMI Normal Abdomen: Bowel Sounds Present, Soft, Non Tender, Non-Distended, No Hepato- splenomegaly Extremities: No clubbing, No cyanosis, No edema Skin: No rashes, No breakdown Lymphatic: No Cervical, Supraclavicular, or Inguinal Adenopathy Neurological: Cranial nerves II-XII grossly intact, Neuro grossly intact Psych/Mental Status: Normal Affect, Appropriate Laboratory Results 08/31/20 22:59: Hepatitis A IgM Ab Negative, Hep Bs Antigen Negative, Hep B Core IgM Ab Negative, Hepatitis C Ab (EIA) 0.4 Current Medications Atorvastatin Calcium (Atorvastatin Calcium 20 Mg Tablet) 20 mg PO QHS [facility] Last Admin: 09/02/20 23:20 Dose: 20 mg Documented by: Buprenorphine HCl (Buprenorphine Hcl 2 Mg Tab.Subl) 2 mg SL Q12H [facility]; Taper Stop: 09/04/20 06:29 Last Admin: 09/03/20 06:05 Dose: 2 mg Documented by: Clonidine (Clonidine Hcl 0.1 Mg Tablet) 0.1 mg PO Q8H PRN PRN PRN Reason: RESTLESSNESS Last Admin: 09/02/20 20:22 Dose: 0.1 mg Documented by: Dicyclomine HCl (Dicyclomine 10 Mg Capsule) 20 mg PO Q6H PRN PRN PRN Reason: Abdominal Discomfort Doxepin HCl (Doxepin Hydrochloride 10 Mg Capsule) 10 mg PO QHS [facility] Last Admin: 09/02/20 23:41 Dose: 10 mg Documented by: Escitalopram Oxalate (Escitalopram Oxalate 20 Mg Tablet) 20 mg PO DAILY [facility] Last Admin: 09/03/20 10:17 Dose: 20 mg Documented by: Gabapentin (Gabapentin 300 Mg Capsule) 300 mg PO Q8H PRN PRN PRN Reason: moderate to severe anxiety Last Admin: 09/02/20 18:25 Dose: 300 mg Documented by: Hydroxyzine Pamoate (Hydroxyzine [place] 25 Mg Capsule) 50 mg PO Q6H PRN PRN PRN Reason: mild anxiety Last Admin: 09/02/20 16:54 Dose: 50 mg Documented by: Ibuprofen (Ibuprofen 400 Mg Tablet) 400 mg PO Q6H PRN PRN PRN Reason: Pain Score 1-10 Last Admin: 09/02/20 19:33 Dose: 400 mg Documented by: Loperamide HCl (Loperamide 2 Mg Capsule) 2 mg PO Q4H PRN PRN PRN Reason: LOOSE STOOLS Melatonin (Melatonin 3 Mg Tablet) 3 mg PO QHS PRN PRN PRN Reason: INSOMNIA Methocarbamol (Methocarbamol 750 Mg Tablet) 1,500 mg PO Q6H PRN PRN PRN Reason: MUSCLE SPASM Last Admin: 09/02/20 18:25 Dose: 1,500 mg Documented by: Nicotine (Nicotine 21 Mg Patch) 21 mg TD DAILY [facility] Last Admin: 09/03/20 10:17 Dose: 21 mg Documented by: Nutritional Formula (Lactose Free) (Ensure Enlive 120 Ml Liquid) 120 ml PO 4X/DAY [facility] Last Admin: 09/03/20 10:17 Dose: 120 ml Documented by: Ondansetron HCl (Ondansetron 8 Mg Tablet) 8 mg PO Q8H PRN PRN PRN Reason: NAUSEA Last Admin: 09/02/20 16:54 Dose: 8 mg Documented by: Pantoprazole Sodium (Pantoprazole Sodium 20 Mg Tablet) 20 mg PO DAILY [facility] Last Admin: 09/03/20 10:17 Dose: 20 mg Documented by: Sodium Chloride (0.9% Saline Lock 10 Ml Syringe) 10 - 40 ml IV UD PRN PRN Reason: SALINE FLUSH Trazodone HCl (Trazodone 100 Mg Tablet) 100 mg PO QHS PRN PRN PRN Reason: INSOMNIA Last Admin: 09/01/20 22:03 Dose: 100 mg Documented by: Discharge Activity: Return to Normal Activity Weight Bearing Status: Full weight bearing Call your doctor if you observe: Fever of 101 or Higher, Shortness of breath, Dizziness, Fainting spells, Chest pain, Increased palpitations (irregular heartbeat), Uncontrolled pain Home Medications: Medications to take at Discharge Atorvastatin Calcium [Lipitor] 20 mg PO QHS 08/31/20 Doxepin HCl 10 mg PO QHS 08/31/20 Escitalopram Oxalate 20 mg PO DAILY 08/31/20 Omeprazole 20 mg PO DAILY 08/31/20 Primary Care Physician: Care Physician,No Primary [Primary Care Provider] - Please follow up with your Primary Care Physician in: 2-3 weeks. Disposition: Home Minutes spent on discharge:: 27 Patient Condition:: Stable Medical Necessity - Tobacco Use Smoking Status: Current every day smoker Tobacco Use: Cigarettes Meaningful Use Info Meaningful Use Diagnoses (Choose all that apply): None applicable Inpatient E&M: 45614 Disch Hosp
[2020-09-03 14:58] VITALS: BP 122/80; PULSE 68; RESP 18; TEMP 36.7; O2SAT 100
--- NOTE | 2020-09-03 15:08 | NURSING ---
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
== END 2020-09-03 16:40 | disposition home or self-care (01) | DRG 897 ==
LOC: ED 22:43 → MS3 23:44
PROVIDERS: Admitting Provider Hospitalist; Emergency Provider Emergency Medicine; Visit Provider Hospitalist
DX: F11.23 Opioid dependence with withdrawal (principal); R74.01 Elevation of levels of liver transaminase levels; K21.9 Gastro-esophageal reflux disease without esophagitis; F41.9 Anxiety disorder, unspecified; F32.9 Major depressive disorder, single episode, unspecified; E78.5 Hyperlipidemia, unspecified; F17.210 Nicotine dependence, cigarettes, uncomplicated; K44.9 Diaphragmatic hernia without obstruction or gangrene
CPT/HCPCS: 36415; 76705; 80053; 80074; 80307; 80320; 85025; 85610; 97802; 99283; 99406; A4216; G0480; J2405

== ENCOUNTER 2020-12-26 19:01 | Observation (INO) | payer MEDICAID, SELFPAY ==
[2020-12-26 19:01] VITALS: BP 138/88; PULSE 94; RESP 16; TEMP 37; O2SAT 98; BMI 26.6
[2020-12-26 20:07] LABS: Internal QC Validated? YES +Cl - CLEAR BKGD; Pregnancy, Serum, hCG Quali. NEGATIVE Negative
[2020-12-26 20:07] LABS: Amphetamine Urine VISTA NEGATIVE (<1000 ng/mL); Barbiturate Urine VISTA NEGATIVE (< 200 ng/mL); Benzodiazepine Urine VISTA NEGATIVE (< 200 ng/mL); Cocaine Urine VISTA NEGATIVE (< 300 ng/mL); Ecstacy Urine VISTA NEGATIVE (< 500 ng/mL); Methadone Urine VISTA NEGATIVE (< 300 ng/mL); PCP Urine VISTA NEGATIVE (< 25 ng/mL); THC Urine VISTA NEGATIVE (< 50 ng/mL); Vista UDS pH Range 6
[2020-12-26 20:14] LABS: ALB/GLOB Ratio 1.1 RATIO (0.9-2.4); AST(SGOT) 22 U/L (15-37); Alanine Aminotransfer ALT/SGPT 30 U/L (13-56); Albumin, Serum 3.8 g/dL (3.2-5.0); Alkaline Phosphatase 91 U/L (45-117); Anion Gap 3 (5-15); BUN 10 mg/dL (7-18); BUN/Creat Ratio 15.7 RATIO (10-20); Calcium,Total 9.1 mg/dL (8.5-10.1); Chloride 104 mmol/L (98-107); Creatinine, Serum 0.64 mg/dL (0.55-1.02); EST Glomerular Filtration Rate 110 mL/min (>60); Est Glom Filt Rate - Afr Amer 133 mL/min (>60); Estimated Creatinine Clearance 106.19 ml/min; Globulin 3.6 g/dL (2.2-4.2); Glucose 102 mg/dL (74-106); Potassium 3.6 mmol/L (3.5-5.1); Protein, Total 7.4 g/dL (6.4-8.2); Sodium Level 136 mmol/L (136-145)
--- NOTE | 2020-12-26 20:53 | CM.ED ---
Social Work Telephone call to [facility]. Harshil updated on patient admission. Rogreio Wyman MSW, [facility]
--- NOTE | 2020-12-26 21:21 | ED.VISSUMM ---
- ER Visit Summary Date of Service: 12/26/20 Chief Complaint: Requesting detox History of Present Illness: The patient is a 40 F presenting requesting detox from fentanyl. Patient states she has been using IV fentanyl daily. She states she uses approximately 1 g/day. Last use was 5 hours prior to arrival. She last went through detox in August. She states she was only clean for a couple of days after discharge. She denies other drug use. Denies alcohol use. She does smoke cigarettes. Physical Examination: Vitals are stable. Patient is afebrile. Alert no acute distress. HEENT exam is unremarkable. Neck is supple. Lungs are clear and equal bilaterally. Heart is regular rate and rhythm. Abdomen is soft nontender nondistended. Extremities are unremarkable. Skin is warm and dry. No focal neurologic deficit. Remainder of exam is unremarkable. Emergency Department Course and Treatment: Chemistries unremarkable. hCG negative. Tox and alcohol are negative. Will discuss with hospitalist for admission. Disposition: Admission Impression: Opiate dependence This note was generated with [employer] dictation software. It may contain incorrect words, spelling, and punctuation that were not noted in review of the chart prior to signing ED Disposition - Plan for ED Patient: Referrals: [facility] Doctor,Out of [Primary Care Provider] -
[2020-12-26 21:51] VITALS: BP 112/80; PULSE 70; RESP 16; RESP 17; TEMP 37.4; O2SAT 97
--- NOTE | 2020-12-26 21:53 | PCM.HP.STD ---
<Amberly Moreau - Last Filed: 12/26/20 21:53> Problem List (1) Desire for detoxification Status: Acute (2) Depression Status: Chronic (3) High cholesterol Status: Chronic (4) GERD (gastroesophageal reflux disease) Status: Chronic History of Present Illness Date of Admission: 12/26/20 Chief Complaint: Desire for detoxification from fentanyl The patient is a 40 year old F who presents today with desire to detox from fentanyl. Patient reports last use at 2:30 PM earlier today and reports that she used approximately a quarter of a gram. Patient is currently not going through withdrawal symptoms. Patient reports that she has not taken any of her prescribed home medications for over a month. Patient toxicology screen in ER negative, other labs unremarkable. Past Medical History Past Medical History (Chronic Problems): Chronic Problems Depression (Chronic) High cholesterol (Chronic) GERD (gastroesophageal reflux disease) (Chronic) Allergies Penicillins Allergy (Verified 12/26/20 19:03) Hives Home Medications: Ambulatory Orders Medication Instructions Recorded NK 12/26/20 Surgical History: hysterectomy Psychiatric History: No pertinent psych hx [employer] History: No pertinent [employer] history Lives: Spouse/ Significant Other Smoking Status: Current every day smoker Alcohol: None Drugs: - - Fentanyl - *Family History Maternal History Items: Cancer, - - Thyroid disease Paternal History Items: - - Patient does not know paternal medical history Review of Systems Constitutional: Denies: Chills, Fever, Weight Change HEENT: Denies: Head Aches, Sinus Congestion, Sinus Drainage Cardiovascular: Denies: Chest Pain, Palpitations Respiratory: Denies: Cough, Shortness of breath at rest, Sputum production Gastrointestinal: Denies: Abdominal Pain, Nausea, Vomiting Genitourinary: Denies: Dysuria Musculoskeletal: Reports: Arm Pain - Patient states she has pain in her left arm where she injected yesterday. Denies: Joint Pain, Joint Tenderness Skin: Denies: Rash, Wounds Neurological: Denies: Numbness, Tingling, Focal weakness Psychiatric: Denies: Anxiety, Depression, Homicidal Ideations, Suicidal Ideations Hematologic/ Lymphatic: Denies: Easy Bruising, Easy Bleeding VTE Information - Inpt Only VTE Present on Admission: No VTE Mechan Device Prophylaxis: None VTE Pharm Prophylaxis ordered?: No - Physical Exam Vitals/I&O's: Vital Signs Temp Pulse Resp BP Pulse Ox 99.3 F H 70 17 112/80 97 04/07/21 21:51 12/26/20 21:51 12/26/20 21:51 12/26/20 21:51 12/26/20 21:51 Oxygen Delivery Method Room Air Weight: 160 lb Body Mass Index (BMI) 26.6 General: Alert, Oriented x3, Cooperative HEENT: Atraumatic, PERRLA, EOMI, Normocephalic Neck: Supple, No JVD, Negative Carotid Bruits Lungs: Clear to auscultation, Normal air movement Cardiovascular: Regular rate, Regular Rhythm, Normal S1, Normal S2, No murmurs Abdomen: Bowel Sounds Present, Soft, Non Tender Extremities: No edema, Capillary Refill Less than 3 Seconds Skin: No rashes, No breakdown, - - Tender swollen area to left lateral forearm Musculoskeletal: No Tenderness to Palpation of Joints or Extremities Neurological: Cranial nerves II-XII grossly intact Psych/Mental Status: Normal Affect, Appropriate Laboratory Results 12/26/20 19:21: Urine Opiates Screen NEGATIVE, Urine Methadone Screen NEGATIVE, Ur Barbiturates Screen NEGATIVE, Ur Phencyclidine Scrn NEGATIVE, Ur Amphetamines Screen NEGATIVE, U Methamphetamin-MDMA NEGATIVE, U Benzodiazepines Scrn NEGATIVE, Urine Cocaine Screen NEGATIVE, U Cannabinoids Screen NEGATIVE, Ur Drug Screen Comment 12/26/20 19:45: Sodium 136, Potassium 3.6, Chloride 104, Carbon Dioxide 29.0, Anion Gap 3 L, BUN 10, Creatinine 0.64, Estim Creat Clear Calc 106.19, Est GFR (MDRD) Af Amer 133, Est GFR (MDRD) Non-Af 110, BUN/Creatinine Ratio 15.7, Glucose 102, Calcium 9.1, Total Bilirubin 0.70, AST 22, ALT 30, Alkaline Phosphatase 91, Total Protein 7.4, Albumin 3.8, Globulin 3.6, Albumin/Globulin Ratio 1.1 12/26/20 19:45: Ethyl Alcohol 6.0 12/26/20 19:45: Serum , Qual NEGATIVE Assessment/Plan All Active Problems Opiate withdrawal (Acute) 1. Desire for detoxification -Admit to MedSurg as part of ramp program -Buprenorphine and supportive meds ordered per protocol -Consult 180. 2. Nicotine dependence -NicoDerm patch ordered DVT prophylaxis-not indicated This patient was seen by HECTOR Mcgarry under the supervision of Dr. Allison for <Eamon Julian E - Last Filed: 12/26/20 22:41> History of Present Illness The patient is a 40 year old F [] Past Medical History Allergies Penicillins Allergy (Verified 12/26/20 19:03) Hives - Physical Exam Vitals/I&O's: Vital Signs Temp Pulse Resp BP Pulse Ox 99.3 F H 70 17 112/80 97 12/26/20 21:51 12/26/20 21:51 12/26/20 21:51 12/26/20 21:51 12/26/20 21:51 Oxygen Delivery Method Room Air Weight: 143 lb 1.28 oz Body Mass Index (BMI) 23.8 Laboratory Results 12/26/20 19:21: Urine Opiates Screen NEGATIVE, Urine Methadone Screen NEGATIVE, Ur Barbiturates Screen NEGATIVE, Ur Phencyclidine Scrn NEGATIVE, Ur Amphetamines Screen NEGATIVE, U Methamphetamin-MDMA NEGATIVE, U Benzodiazepines Scrn NEGATIVE, Urine Cocaine Screen NEGATIVE, U Cannabinoids Screen NEGATIVE, Ur Drug Screen Comment 12/26/20 19:45: Sodium 136, Potassium 3.6, Chloride 104, Carbon Dioxide 29.0, Anion Gap 3 L, BUN 10, Creatinine 0.64, Estim Creat Clear Calc 106.19, Est GFR (MDRD) Af Amer 133, Est GFR (MDRD) Non-Af 110, BUN/Creatinine Ratio 15.7, Glucose 102, Calcium 9.1, Total Bilirubin 0.70, AST 22, ALT 30, Alkaline Phosphatase 91, Total Protein 7.4, Albumin 3.8, Globulin 3.6, Albumin/Globulin Ratio 1.1 12/26/20 19:45: Ethyl Alcohol 6.0 12/26/20 19:45: Serum , Qual NEGATIVE Current Medications Acetaminophen (Acetaminophen 500 Mg Tablet) 500 mg PO Q4H PRN PRN PRN Reason: Temp > 100.4 F Buprenorphine HCl (Buprenorphine Hcl 2 Mg Tab.Subl) 0 mg SL Q8H DAVID; Taper Stop: 12/29/20 22:18 Clonidine (Clonidine Hcl 0.1 Mg Tablet) 0.1 mg PO Q8H PRN PRN PRN Reason: RESTLESSNESS Dicyclomine HCl (Dicyclomine 10 Mg Capsule) 20 mg PO Q6H PRN PRN PRN Reason: Abdominal Discomfort Gabapentin (Gabapentin 300 Mg Capsule) 300 mg PO Q8H PRN PRN PRN Reason: moderate to severe anxiety Hydroxyzine Pamoate (Hydroxyzine [place] 25 Mg Capsule) 50 mg PO Q6H PRN PRN PRN Reason: mild anxiety Loperamide HCl (Loperamide 2 Mg Capsule) 2 mg PO Q4H PRN PRN PRN Reason: LOOSE STOOLS Methocarbamol (Methocarbamol 750 Mg Tablet) 1,500 mg PO Q6H PRN PRN PRN Reason: MUSCLE SPASM Nicotine (Nicotine 21 Mg Patch) 21 mg TD DAILY DAVID Ondansetron HCl (Ondansetron 8 Mg Tablet) 8 mg PO Q8H PRN PRN PRN Reason: NAUSEA Trazodone HCl (Trazodone 100 Mg Tablet) 100 mg PO QHS PRN PRN PRN Reason: INSOMNIA Assessment/Plan Hospitalist note: I am seeing this patient in conjunction with Amberly Moreau. I independently seen and examined the patient. History and physical, laboratory data and imaging studies reviewed and I concur with above admission and treatment plan. Patient presented to the emergency room requesting admission for acute opioid withdrawal for medical stabilization. She has been using IV fentanyl every day, last use was today around 5:30 PM. She was admitted on August, for acute opioid withdrawal, was discharged and supposed to follow-up with 180 program but she did not. She stayed sober only for 2 days and she relapsed using IV fentanyl every day 2 days after discharge. She reported mild withdrawal symptoms of leg cramps and restlessness as well as anxiety. She has been tearful throughout the encounter. In the emergency department, her vital signs were stable. Her CMP was unremarkable. Serum was negative. Urine drug screen was negative. Blood alcohol level was 6. She is being admitted for acute opioid withdrawal for medical stabilization. - Physical Exam General: Alert, Oriented x3, Cooperative, No apparent distress. HEENT: Atraumatic, PERRLA, EOMI. Neck: Supple, No JVD, Negative Carotid Bruits, Trachea Midline, Thyroid Normal. Lungs: Clear to auscultation, Normal air movement, No rhonchi, No wheeze, No rales. Cardiovascular: Regular rate, Regular Rhythm, Normal S1, Normal S2, PMI Normal. Abdomen: Bowel Sounds Present, Soft, Non Tender, Non-Distended, No Hepato-splenomegaly. Extremities: No clubbing, No cyanosis, No edema Skin: No rashes, No breakdown Neurological: Cranial nerves are intact, neuro grossly intact Vital Signs are stable. Assessment and plan: #1 acute opiate withdrawal: Patient has been using IV fentanyl every day, last use was 5:30 PM today. She was admitted for detox on August, but she relapsed 2 days after discharge, she did not follow-up with 180 program. [facility], start acute opioid withdrawal protocol with tapering Subutex, as needed Catapres, Bentyl, gabapentin, Vistaril, Imodium, methocarbamol, Zofran and trazodone, consult 180 program. #2 other chronic medical problems: Stable, continue current medications as above. This note was generated with [employer] dictation software. It may contain incorrect words, spelling, and punctuation that were not noted in checking the note before signing. Inpatient E&M: 59528 Init Hosp L2
[2020-12-26 22:22] VITALS: BMI 23.8
[2020-12-26 22:30] VITALS: BMI 23.8
[2020-12-26 22:36] VITALS: BP 101/55; PULSE 71; RESP 16; TEMP 37.3; O2SAT 99
[2020-12-26] MEDS: hydrOXYzine PAM 25 MG Capsule 50 MG PO (23:03)
[2020-12-26] MEDS: traZODone 100 MG Tablet PO (23:03)
[2020-12-27 04:14] VITALS: BP 96/55; PULSE 75; RESP 18; TEMP 36.6; O2SAT 95
[2020-12-27 08:55] VITALS: PULSE 80
--- NOTE | 2020-12-27 09:19 | ADDICTION ---
This marketing underwriter attempted to meet with PT to conduct assessments and to complete d/c plan. PT was awake but requested to meet with this marketing underwriter tomorrow (4.9.) as she is not feeling up to it today. This marketing underwriter informed PT that she will need to engage tomorrow. PT amiable.
[2020-12-27 10:10] VITALS: BP 111/69; PULSE 81; RESP 18; TEMP 37; O2SAT 98
[2020-12-27] MEDS: hydrOXYzine PAM 25 MG Capsule 50 MG PO ×2 (10:14→19:00)
[2020-12-27] MEDS: Dicyclomine 10 MG Capsule 20 MG PO (11:42)
[2020-12-27] MEDS: Methocarbamol 750 MG Tablet 1500 MG PO ×2 (11:42→19:00)
[2020-12-27] MEDS: Buprenorphine HCl 2 MG TAB.SUBL SL ×2 (11:42→19:00)
[2020-12-27] MEDS: Gabapentin 300 MG Capsule PO ×2 (11:42→22:02)
--- NOTE | 2020-12-27 12:05 | PN_ITS ---
Subjective: Patient seen and examined. She is being managed for acute opioid withdrawal. She has no complaints today, and review of systems is otherwise negative. She has remained hemodynamically stable. Vitals/I&O's: Vital Signs Temp Pulse Resp BP Pulse Ox 98.6 F 81 18 111/69 98 12/27/20 10:10 12/27/20 10:10 12/27/20 10:10 12/27/20 10:10 12/27/20 10:10 Oxygen Delivery Method Room Air Weight: 143 lb 1.28 oz Body Mass Index (BMI) 23.8 General: Alert, Oriented x3, Cooperative HEENT: Atraumatic, PERRLA, EOMI, Normocephalic Neck: Supple, No JVD, Negative Carotid Bruits Lungs: Clear to auscultation, Normal air movement Cardiovascular: Regular rate, Regular Rhythm, Normal S1, Normal S2, No murmurs Abdomen: Bowel Sounds Present, Soft, Non Tender Extremities: No edema, Capillary Refill Less than 3 Seconds Skin: No rashes, No breakdown Musculoskeletal: No Tenderness to Palpation of Joints or Extremities Neurological: Cranial nerves II-XII grossly intact Psych/Mental Status: Normal Affect, Appropriate, Alert and oriented to time, place, person, mood and affect Laboratory Results 12/26/20 19:21: Urine Opiates Screen NEGATIVE, Urine Methadone Screen NEGATIVE, Ur Barbiturates Screen NEGATIVE, Ur Phencyclidine Scrn NEGATIVE, Ur Amphetamines Screen NEGATIVE, U Methamphetamin-MDMA NEGATIVE, U Benzodiazepines Scrn NEGATIVE, Urine Cocaine Screen NEGATIVE, U Cannabinoids Screen NEGATIVE, Ur Drug Screen Comment 12/26/20 19:45: Sodium 136, Potassium 3.6, Chloride 104, Carbon Dioxide 29.0, Anion Gap 3 L, BUN 10, Creatinine 0.64, Estim Creat Clear Calc 106.19, Est GFR (MDRD) Af Amer 133, Est GFR (MDRD) Non-Af 110, BUN/Creatinine Ratio 15.7, Glucose 102, Calcium 9.1, Total Bilirubin 0.70, AST 22, ALT 30, Alkaline Phosphatase 91, Total Protein 7.4, Albumin 3.8, Globulin 3.6, Albumin/Globulin Ratio 1.1 12/26/20 19:45: Ethyl Alcohol 6.0 12/26/20 19:45: Serum , Qual NEGATIVE Current Medications Acetaminophen (Acetaminophen 500 Mg Tablet) 500 mg PO Q4H PRN PRN PRN Reason: Temp > 100.4 F Buprenorphine HCl (Buprenorphine Hcl 2 Mg Tab.Subl) 4 mg SL Q8H DAVID; Taper Stop: 12/30/20 11:44 Last Admin: 12/27/20 11:42 Dose: 4 mg Documented by: Clonidine (Clonidine Hcl 0.1 Mg Tablet) 0.1 mg PO Q8H PRN PRN PRN Reason: RESTLESSNESS Dicyclomine HCl (Dicyclomine 10 Mg Capsule) 20 mg PO Q6H PRN PRN PRN Reason: Abdominal Discomfort Last Admin: 12/27/20 11:42 Dose: 20 mg Documented by: Gabapentin (Gabapentin 300 Mg Capsule) 300 mg PO Q8H PRN PRN PRN Reason: moderate to severe anxiety Last Admin: 12/27/20 11:42 Dose: 300 mg Documented by: Hydroxyzine Pamoate (Hydroxyzine [place] 25 Mg Capsule) 50 mg PO Q6H PRN PRN PRN Reason: mild anxiety Last Admin: 12/27/20 10:14 Dose: 50 mg Documented by: Loperamide HCl (Loperamide 2 Mg Capsule) 2 mg PO Q4H PRN PRN PRN Reason: LOOSE STOOLS Methocarbamol (Methocarbamol 750 Mg Tablet) 1,500 mg PO Q6H PRN PRN PRN Reason: MUSCLE SPASM Last Admin: 12/27/20 11:42 Dose: 1,500 mg Documented by: Nicotine (Nicotine 21 Mg Patch) 21 mg TD DAILY [facility] Last Admin: 12/27/20 10:14 Dose: 21 mg Documented by: Ondansetron HCl (Ondansetron 8 Mg Tablet) 8 mg PO Q8H PRN PRN PRN Reason: NAUSEA Trazodone HCl (Trazodone 100 Mg Tablet) 100 mg PO QHS PRN PRN PRN Reason: INSOMNIA Last Admin: 12/26/20 23:03 Dose: 100 mg Documented by: STROKE Vital Signs/Narrative: Vital Signs Temp Pulse Resp BP Pulse Ox 12/27/20 10:10 98.6 F 81 18 111/69 98 12/27/20 08:55 80 Medical Necessity - Tobacco Use Smoking Status: Current every day smoker Tobacco Use: Cigarettes Assessment/Plan All Active Problems Opiate withdrawal (Acute) #Acute opioid withdrawal * on opioid withdrawal protocol with buprenorphine * monitor CINA score * #Nicotine dependence: on nicotine patch 21 mg daily. counseled to quit. DVT prophylaxis:low risk.encouraged to ambulate Inpatient E&M: 56517 Subs Hosp L2
[2020-12-27] MEDS: cloNIDine HCl 0.1 MG Tablet PO (13:27)
[2020-12-27 13:28] VITALS: BP 133/77; PULSE 97
[2020-12-27 14:12] VITALS: BP 131/75; PULSE 96; RESP 18; TEMP 36.9; O2SAT 100
[2020-12-27] MEDS: LORazepam 1 MG Tablet PO (14:43)
--- NOTE | 2020-12-27 15:26 | NT.THERAPY_ITS ---
Nutrition Therapy Report - History Nutrition Services has been consulted to:: Manage nutrient details of diet order Current diet / nutrition support order:: Regular diet with snacks 3 times per day as tolerated - Anthropometric Measurements Height:: 5 ft 5 in Weight:: 64.9 kg Body Mass Index (BMI):: 23.8 - Relevant Labs Relevant Labs:: Anion Gap 3 (5-15) L 12/26/20 19:45 - Assessment Food / Nutrition-Related History:: Poor intake per noted lunch tray at bedside--only gelatin consumed and pt reports poor appetite at this time and refusing all ONS offered this date. Pt denies recent wt loss but, then reports UBW~160 lbs about 2-4 weeks ago; calculated~10% wt loss significant for severe malnutrition. Pt with lunch tray at bedside w/ noted only gelatin consumed and refuses ONS at this time. Pt admits to ongoing poor intake x past 1-2 months due to drug abuse. -NFPA, pt does not seem to show physical signs of muscle/fat wasting. - Nutrition Diagnosis Problem / Etiology / Signs & Symptoms (PES):: Severe pro/lesley malnutrition in the context of social circumstance related to drug abuse and inadequate oral intake as evidenced by recent unintentional wt loss of ~10% x past 2-4 weeks and ongoing poor intake x past 1-2 months meeting less than 50% of estimated nut rition needs. Evidence of Malnutrition Exists:: Yes Severe PCM:: Social & Environmental circumstances - Nutrition Intervention Nutrition Prescription:: Estimated nutrition needs~1342-6511 kcal (30 kcal/Kg) and ~60-80 gm pro (1-1.2 gm pro/kg) per day. Estimated fluid needs~1291-6713 ml/day (30 ml/Kg). - Food / Nutrient Delivery Interventions Summary of nutrition intervention:: Will continue liberalized regular dietand 3 snacks daily as tolerated; pt refusing all ONS as offered. Nutrition education provided?: No - pt uninterested in discussion - MNT Monitoring Further MNT monitoring and evaluation required?: Yes MNT Follow-up in:: 3-5 days
[2020-12-27 15:29] VITALS: BMI 23.8
[2020-12-27] MEDS: Ondansetron 8 MG Tablet PO (19:00)
[2020-12-27 20:18] VITALS: BP 94/53; PULSE 96; RESP 18; TEMP 37; O2SAT 94
[2020-12-27] MEDS: Acetaminophen 500 MG Tablet PO (20:45)
[2020-12-27] MEDS: traZODone 100 MG Tablet PO (22:02)
[2020-12-28 02:50] VITALS: BP 106/67; PULSE 89; RESP 18; TEMP 36.6; O2SAT 94
[2020-12-28] MEDS: Buprenorphine HCl 2 MG TAB.SUBL SL ×3 (02:57→19:27)
[2020-12-28] MEDS: Dicyclomine 10 MG Capsule 20 MG PO ×2 (02:57→23:00)
[2020-12-28] MEDS: Methocarbamol 750 MG Tablet 1500 MG PO ×2 (02:57→23:00)
[2020-12-28] MEDS: cloNIDine HCl 0.1 MG Tablet PO ×2 (02:57→17:46)
[2020-12-28] MEDS: hydrOXYzine PAM 25 MG Capsule 50 MG PO ×3 (02:57→23:01)
[2020-12-28 09:21] VITALS: BP 105/67; PULSE 76; RESP 14; TEMP 36.8; O2SAT 95
[2020-12-28] MEDS: Acetaminophen 500 MG Tablet PO ×3 (09:24→23:00)
--- NOTE | 2020-12-28 11:07 | ADDICTION ---
This check writer attempted to meet with PT in her room. PT stated that she does not want to meet with this check writer and refused to complete required paperwork. This check writer informed charge nurse. No documentation completed.
--- NOTE | 2020-12-28 11:51 | PN_ITS ---
Subjective: Patient seen and examined. She has no complaints. Review of systems is otherwise negative. She has remained hemodynamically stable. Vitals/I&O's: Vital Signs Temp Pulse Resp BP Pulse Ox 98.3 F 76 14 105/67 95 12/28/20 09:21 12/28/20 09:21 12/28/20 09:21 12/28/20 09:21 12/28/20 09:21 Oxygen Delivery Method Room Air Weight: 143 lb 1.28 oz Body Mass Index (BMI) 23.8 Intake and Output for Last 24 Hours 12/26/20 12/27/20 12/28/20 23:59 23:59 23:59 Intake Total 300 / 300 Balance 300 / 300 General: Alert, Oriented x3, Cooperative HEENT: Atraumatic, PERRLA, EOMI, Normocephalic Neck: Supple, No JVD, Negative Carotid Bruits Lungs: Clear to auscultation, Normal air movement Cardiovascular: Regular rate, Regular Rhythm, Normal S1, Normal S2, No murmurs Abdomen: Bowel Sounds Present, Soft, Non Tender Extremities: No edema, Capillary Refill Less than 3 Seconds Skin: No rashes, No breakdown Musculoskeletal: No Tenderness to Palpation of Joints or Extremities Neurological: Cranial nerves II-XII grossly intact Psych/Mental Status: Normal Affect, Appropriate, Alert and oriented to time, place, person, mood and affect Current Medications Acetaminophen (Acetaminophen 500 Mg Tablet) 500 mg PO Q4H PRN PRN PRN Reason: Pain 1-10 or Fever Last Admin: 12/28/20 09:24 Dose: 500 mg Documented by: Buprenorphine HCl (Buprenorphine Hcl 2 Mg Tab.Subl) 2 mg SL Q8H DAVID; Taper Stop: 12/30/20 11:44 Last Admin: 12/28/20 02:57 Dose: 4 mg Documented by: Clonidine (Clonidine Hcl 0.1 Mg Tablet) 0.1 mg PO Q8H PRN PRN PRN Reason: RESTLESSNESS Last Admin: 12/28/20 02:57 Dose: 0.1 mg Documented by: Dicyclomine HCl (Dicyclomine 10 Mg Capsule) 20 mg PO Q6H PRN PRN PRN Reason: Abdominal Discomfort Last Admin: 12/28/20 02:57 Dose: 20 mg Documented by: Gabapentin (Gabapentin 300 Mg Capsule) 300 mg PO Q8H PRN PRN PRN Reason: moderate to severe anxiety Last Admin: 12/27/20 22:02 Dose: 300 mg Documented by: Hydroxyzine Pamoate (Hydroxyzine [place] 25 Mg Capsule) 50 mg PO Q6H PRN PRN PRN Reason: mild anxiety Last Admin: 12/28/20 09:24 Dose: 50 mg Documented by: Loperamide HCl (Loperamide 2 Mg Capsule) 2 mg PO Q4H PRN PRN PRN Reason: LOOSE STOOLS Methocarbamol (Methocarbamol 750 Mg Tablet) 1,500 mg PO Q6H PRN PRN PRN Reason: MUSCLE SPASM Last Admin: 12/28/20 02:57 Dose: 1,500 mg Documented by: Nicotine (Nicotine 21 Mg Patch) 21 mg TD DAILY DAVID Last Admin: 12/27/20 10:14 Dose: 21 mg Documented by: Ondansetron HCl (Ondansetron 8 Mg Tablet) 8 mg PO Q8H PRN PRN PRN Reason: NAUSEA Last Admin: 12/27/20 19:00 Dose: 8 mg Documented by: Trazodone HCl (Trazodone 100 Mg Tablet) 100 mg PO QHS PRN PRN PRN Reason: INSOMNIA Last Admin: 12/27/20 22:02 Dose: 100 mg Documented by: STROKE Vital Signs/Narrative: Vital Signs Temp Pulse Resp BP Pulse Ox 12/28/20 09:21 98.3 F 76 14 105/67 95 Medical Necessity - Tobacco Use Smoking Status: Current every day smoker Tobacco Use: Cigarettes Assessment/Plan All Active Problems Opiate withdrawal (Acute) #Acute opioid withdrawal * on opioid withdrawal protocol with buprenorphine * monitor CINA score * #Nicotine dependence: on nicotine patch 21 mg daily. counseled to quit. DVT prophylaxis:low risk.encouraged to ambulate Disposition: for discharge home tomorrow. Inpatient E&M: 69548 Subs Hosp L2
[2020-12-28] MEDS: Gabapentin 300 MG Capsule PO (14:33)
[2020-12-28 15:00] VITALS: BP 98/67; PULSE 73; RESP 16; TEMP 36.6; O2SAT 99
[2020-12-28 17:44] VITALS: BP 103/63; PULSE 77
[2020-12-28 22:44] VITALS: BP 117/69; PULSE 63; RESP 18; TEMP 36.6; O2SAT 98
[2020-12-28] MEDS: traZODone 100 MG Tablet PO (23:01)
[2020-12-29 04:04] VITALS: BP 92/60; PULSE 71; RESP 18; TEMP 36.6; O2SAT 96
[2020-12-29] MEDS: Gabapentin 300 MG Capsule PO (04:11)
[2020-12-29] MEDS: Buprenorphine HCl 2 MG TAB.SUBL SL ×2 (04:11→12:37)
--- NOTE | 2020-12-29 08:59 | NURSING ---
MESSAGE LEFT FOR PT SO, ART THAT PT WILL BE DC'D TODAY
[2020-12-29 10:00] VITALS: BP 99/60; PULSE 69; RESP 18; TEMP 36.7; O2SAT 98
--- NOTE | 2020-12-29 10:11 | DCINST_ITS ---
- Discharge Diagnoses Current Active Problems: Current Active and Chronic Problems Depression (Chronic) High cholesterol (Chronic) GERD (gastroesophageal reflux disease) (Chronic) You will use the following diet at home:: Cardiac Your food should be the consistency of: Regular Your liquids should be the consistency of: Regular/Thin Discharge Activity: Return to Normal Activity Weight Bearing Status: Weight bearing as tolerated Call your doctor if you observe: Fever of 101 or Higher Instructions: ED Abuse Drug Narcotic Sedative Rx, ED Opioid Withdrawal, ED Drug Abuse Allergies/Adverse Reactions: Allergies Penicillins Allergy (Verified 12/26/20 19:03) Hives Medications to take at Discharge NK 12/26/20 Primary Care Physician: Sylwia Valdez,Out of [NON-STAFF] - Please follow up with your Primary Care Physician in: PCP in 1-2 weeks Test Results: Test results from this visit will be discussed in further detail at your follow- up appointment, if applicable. Proposed Discharge Date: 12/29/20
--- NOTE | 2020-12-29 10:22 | PCM.DC.SUM ---
Discharge Date and Diagnosis Date of Admission: 12/26/20 Date of Discharge: 12/29/20 - Primary Discharge Diagnosis Acute Problems: acute opioid withdrawal - Secondary Discharge Diagnosis Chronic Problems: Chronic Problems Depression (Chronic) High cholesterol (Chronic) GERD (gastroesophageal reflux disease) (Chronic) Hospital Course and Treatment Operations: None Procedures: None Summary of Care Provided: The patient is a 40 year old F with a past medical history as outlined was admitted through the ED on 12/26/2020 for acute opioid withdrawal. Patient used IV fentanyl and says she is about a quarter of a grand mal on the day of admission. She had no acute withdrawal symptoms. Urine tox was negative. She was admitted and managed for acute opiate withdrawal. She was started on opioid withdrawal protocol with buprenorphine. She tolerated a 3-day detox process. Patient refused any addiction medicine services while seen here and says she preferred to go home to go through rehab on her own. She remained stable and was discharged home on 12/29/2020. She is to follow-up with her primary care doctor in 1 to 2 weeks. Patient seen and examined prior to discharge. She had no complaints and review of symptoms otherwise negative. O/E: Vital Signs Temp Pulse Resp BP Pulse Ox 98.1 F 69 18 99/60 98 12/29/20 10:00 12/29/20 10:00 12/29/20 10:00 12/29/20 10:12/29/20 10:00 General: Alert, Oriented x3, Cooperative HEENT: Atraumatic, PERRLA, EOMI, Normocephalic Neck: Supple, No JVD, Negative Carotid Bruits Lungs: Clear to auscultation, Normal air movement Cardiovascular: Regular rate, Regular Rhythm, Normal S1, Normal S2, No murmurs Abdomen: Bowel Sounds Present, Soft, Non Tender Extremities: No edema, Capillary Refill Less than 3 Seconds Skin: No rashes, No breakdown Musculoskeletal: No Tenderness to Palpation of Joints or Extremities Neurological: Cranial nerves II-XII grossly intact Psych/Mental Status: Normal Affect, Appropriate, Alert and oriented to time, place, person, mood and affect Plan is for discharge home today. - Physical Exam Vitals/I&O's: Vital Signs Temp Pulse Resp BP Pulse Ox 97.9 F 71 18 92/60 96 12/29/20 04:04 12/29/20 04:04 12/29/20 04:04 12/29/20 04:04 12/29/20 04:04 Oxygen Delivery Method Room Air Weight: 143 lb 1.28 oz Body Mass Index (BMI) 23.8 Intake and Output for Last 24 Hours 12/27/20 12/28/20 12/29/20 23:59 23:59 23:59 Intake Total 300 / 300 Balance 300 / 300 Current Medications Acetaminophen (Acetaminophen 500 Mg Tablet) 500 mg PO Q4H PRN PRN PRN Reason: Pain 1-10 or Fever Last Admin: 12/28/20 23:00 Dose: 500 mg Documented by: Buprenorphine HCl (Buprenorphine Hcl 2 Mg Tab.Subl) 2 mg SL Q8H DAVID; Taper Stop: 12/30/20 11:44 Last Admin: 12/29/20 04:11 Dose: 2 mg Documented by: Clonidine (Clonidine Hcl 0.1 Mg Tablet) 0.1 mg PO Q8H PRN PRN PRN Reason: RESTLESSNESS Last Admin: 12/28/20 17:46 Dose: 0.1 mg Documented by: Dicyclomine HCl (Dicyclomine 10 Mg Capsule) 20 mg PO Q6H PRN PRN PRN Reason: Abdominal Discomfort Last Admin: 12/28/20 23:00 Dose: 20 mg Documented by: Gabapentin (Gabapentin 300 Mg Capsule) 300 mg PO Q8H PRN PRN PRN Reason: moderate to severe anxiety Last Admin: 12/29/20 04:11 Dose: 300 mg Documented by: Hydroxyzine Pamoate (Hydroxyzine [place] 25 Mg Capsule) 50 mg PO Q6H PRN PRN PRN Reason: mild anxiety Last Admin: 12/28/20 23:01 Dose: 50 mg Documented by: Loperamide HCl (Loperamide 2 Mg Capsule) 2 mg PO Q4H PRN PRN PRN Reason: LOOSE STOOLS Methocarbamol (Methocarbamol 750 Mg Tablet) 1,500 mg PO Q6H PRN PRN PRN Reason: MUSCLE SPASM Last Admin: 12/28/20 23:00 Dose: 1,500 mg Documented by: Nicotine (Nicotine 21 Mg Patch) 21 mg TD DAILY DAVID Last Admin: 12/29/20 08:51 Dose: 21 mg Documented by: Ondansetron HCl (Ondansetron 8 Mg Tablet) 8 mg PO Q8H PRN PRN PRN Reason: NAUSEA Last Admin: 12/27/20 19:00 Dose: 8 mg Documented by: Trazodone HCl (Trazodone 100 Mg Tablet) 100 mg PO QHS PRN PRN PRN Reason: INSOMNIA Last Admin: 12/28/20 23:01 Dose: 100 mg Documented by: Discharge Diet: No Restrictions Discharge Activity: Return to Normal Activity Weight Bearing Status: Weight bearing as tolerated Call your doctor if you observe: Fever of 101 or Higher Home Medications: Medications to take at Discharge NK 12/26/20 Primary Care Physician: Sylwia Valdez,Out of [NON-STAFF] - Please follow up with your Primary Care Physician in: PCP in 1-2 weeks Patient Instructions: ED Drug Abuse, ED Opioid Withdrawal, ED Abuse Drug Narcotic Sedative Rx Disposition: Home Minutes spent on discharge:: 35 Patient Condition:: Stable Medical Necessity - Tobacco Use Smoking Status: Current every day smoker Tobacco Use: Cigarettes Meaningful Use Info Meaningful Use Diagnoses (Choose all that apply): None applicable Inpatient E&M: 32086 Disch Hosp
[2020-12-29 12:45] VITALS: BP 95/65; PULSE 86; RESP 18; TEMP 36.7; O2SAT 99
[2020-12-29 13:00] VITALS: BP 95/65; PULSE 86; RESP 18; TEMP 36.7; O2SAT 99
== END 2020-12-29 13:02 | disposition home or self-care (01) ==
LOC: ED 19:49 → MS3 21:37
PROVIDERS: Admitting Provider Hospitalist; Emergency Provider Emergency Medicine; PCP Family Medicine; Visit Provider Student in an Organized Health Care Education/Training Program
DX: F11.23 Opioid dependence with withdrawal (principal); E78.00 Pure hypercholesterolemia, unspecified; K21.9 Gastro-esophageal reflux disease without esophagitis; E44.1 Mild protein-calorie malnutrition; Z68.23 Body mass index [BMI] 23.0-23.9, adult; F17.210 Nicotine dependence, cigarettes, uncomplicated
CPT/HCPCS: 80053; 80307; 82077; 84703; 97802; 99283; 99406; H0012